=== PATIENT | male | born 1990 | race Caucasian/White ===

== ENCOUNTER 2019-12-24 19:25 | Emergency (ER) | payer OTHER ==
[2019-12-24 19:37] VITALS: BP 120/69; PULSE 68; TEMP 97.4; BMI 24.3
[2019-12-24] MEDS ORDERED: IBUPROFEN 600 MG TABLET (FP) PO ONE (19:47)
--- NOTE | 2019-12-24 20:53 | PDOC ---
Documentation entered by Anisa Delgado SCRIBE, acting as scribe for Val Mccauley MD. Val Mccauley MD: This documentation has been prepared by the macarioibe, Anisa Delgado SCRIBE, under my direction and personally reviewed by me in its entirety. I confirm that the documentation accurately reflects all work, treatment, procedures, and medical decision making performed by me. History of Present Illness - General Chief Complaint: Pain Stated Complaint: PAIN IN LEFT LUNG X 2 WEEKS Time Seen by Provider: 12/24/19 19:29 History Source: Patient Exam Limitations: No Limitations - History of Present Illness Initial Comments: 12/24/19 20:02 The patient is a 29 year old male with no significant PMH who presents to the ED with pain to his left upper quadrant. As per patient, he has had this pain for 2 weeks, and describes the pain as non-tender and worsens when he takes a deep breath He denies any recent illnesses. PAST MEDICAL HISTORY: no significant history PAST SURGICAL HISTORY: no significant history FAMILY HISTORY: no pertinent history SOCIAL HISTORY: Pt lives with family and is employed. MEDICATIONS: reviewed ALLERGIES: As per nursing notes General: No fevers or chills, no weakness, no weight loss HEENT: No change in vision. No sore throat,. No ear pain CardioVascular: No chest pain or shortness of breath Respiratory:No cough, or wheezing. Gastrointestinal: no nausea, vomiting, diarrhea or constipation, No rectal bleeding Genitourinary: No dysuria, hematuria, or frequency Musculoskeletal:+LUQ pain. No joint pain or swelling Neurologic: No headache, vertigo, dizziness or loss of consciousness Psychiatric: nor depression Skin: No rashes or easy bruising Endocrine: no increased thirst or abnormal weight change Allergic: no skin or latex allergy All other systems reviewed and normal General: Well-nourished well-developed individual, no acute distress HEENT: Throat: Normal, tonsils normal, no erythema or exudate Neck: Supple, no meningeal signs, no lymphadenopathy Eyes::Pupils equal reactive and round, extraocular motion intact Chest: Nontender to palpation Cardiac: S1-S2 normal, regular rate and rhythm, no murmurs rubs or gallops Respiratory: Lungs clear to auscultation bilateral Abdomen: Soft, nondistended, normal bowel sounds, nontender to palpation diffusely Extremities: Warm, dry, no cyanosis, clubbing, or edema Skin: No rashes Neuro: Alert and oriented x3, nonfocal exam, grossly intact, normal gait Psych: Normal mood and affect 12/24/19 20:53 Assessment and plan: This is a 29-year-old male who has had 2 weeks of discomfort in his left anterior chest wall area. Patient had a normal exam and was given ibuprofen. Patient told to try a course of ibuprofen and if his symptoms do not improve to follow-up with his doctor. Past History - Past Medical History Allergies/Adverse Reactions: Allergies Allergy/AdvReac Type Severity Reaction Status Date / Time No Known Allergies Allergy Verified 12/24/19 19:27 Home Medications: Ambulatory Orders NK [No Known Home Medication] 12/24/19 COPD: No Other medical history: DENIES - Psycho Social/Smoking Cessation Hx Smoking History: Never smoked Have you smoked in the past 12 months: No Information on smoking cessation initiated: No Hx Alcohol Use: Yes (WEEKEND) Drug/Substance Use Hx: Yes (MARIJUANA 5 X A WEEK) *Physical Exam - Vital Signs Last Vital Signs Temp Pulse Resp BP Pulse Ox 97.4 F L 68 16 120/69 12/24/19 19:30 12/24/19 19:30 12/24/19 19:30 12/24/19 19:30 Discharge - Discharge Information Problems reviewed: Yes Clinical Impression/Diagnosis: Chest wall pain Condition: Stable Disposition: HOME - Admission No - Follow up/Referral - Patient Discharge Instructions Additional Instructions: Call your doctor in the morning and make an appointment for 1 week from today. Take Motrin 3 tablets 3 times a day with food do not take on an empty stomach. Take the Motrin for 1 week if you are better you do not need to keep your doctor 's appointment if you are not better than follow-up with your doctor. Return to the emergency department immediately with ANY new, persistent or worsening symptoms. Continue any medications as previously prescribed by your physician. You should follow up with your primary doctor as soon as possible regarding today's emergency department visit. . Please make sure your doctor reviews the results of your emergency evaluation. Thank you for coming to the Emergency Department today for your care. It was a pleasure to see you today. Please note that your evaluation is INCOMPLETE until you follow-up with your doctor. - Post Discharge Activity
== END 2019-12-24 19:53 | disposition home or self-care (01) ==
LOC: FER 19:25
DX: R07.89 Other chest pain (principal)
CPT/HCPCS: 99282-25